=== PATIENT | female | born 1960 | race Two or more races ===

== ENCOUNTER → 2017-07-11 | Outpatient (CLI) | payer BC ==
--- NOTE | 2017-07-11 10:58 | WWHP ---
[facility] - HISTORY AND PHYSICAL DATE OF SERVICE: 07/11/2017 CHIEF COMPLAINT: The patient is here for her routine gynecologic exam. HPI: This is a 57-year-old G0 with an LMP of 2010. The patient is without gynecologic complaints. She denies any postmenopausal bleeding. Her last pelvic exam was approximately 3 years ago. She was previously a Dr. Dick patient. PAST MEDICAL HISTORY: Hypothyroidism, elevated cholesterol, and mitral valve prolapse. MEDICATIONS: 1. Levothyroxine 75 mcg daily. 2. Atenolol 5 mg daily. 3. Lipitor 10 mg daily. ALLERGIES: No known drug allergies. PAST SURGICAL HISTORY: D and C in 2010 and 1998, colonoscopy 2016 and this was her second one, breast reduction surgery in 1992. PAST FRAME ASSEMBLER HISTORY: She has been menopausal since 2010 and has no history of STDs. SOCIAL HISTORY: She denies tobacco and drug use and has 1 to 4 alcohol containing drinks per month. 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 FAMILY HISTORY: Mother of ovarian cancer at age 73. REVIEW OF SYSTEMS: Weight has been stable. She denies respiratory or cardiac problems. GI: She states she has occasional bloating, but is usually not persistent. PHYSICAL EXAM: Blood pressure 142/77, height 5 feet 3 inches, weight 175 pounds, BMI 31, temperature 96.2, pulse 62. This is a well-developed, well-nourished, white female, who is alert and oriented x3, in no acute distress. HEENT is within normal limits. NECK: Supple without mass or thyromegaly. CHEST AND LUNGS: Clear to auscultation. HEART: Regular rate and rhythm. Breasts are without mass or discharge. Axillary exam is negative for adenopathy. BACK: Negative for CVA tenderness. ABDOMEN: Soft, nontender, without palpable masses. PELVIC EXAM: External genitalia reveals [id number] atrophy without lesions. Cervix and vagina reveals [id number] atrophy without lesions. Cervix appears somewhat stenotic secondary to atrophy. There is no evidence of prolapse. The uterus is mid position, nongravid size and nontender. There are no palpable adnexal masses or tenderness. Rectovaginal exam is negative for mass or tenderness and is negative for occult blood. EXTREMITIES: Nontender. IMPRESSION: 1. A 57-year-old menopausal female with normal gynecologic exam. 2. Family history of ovarian cancer in her mother. PLAN: 1. Pap smear was performed. 2. Self-breast examination was discussed. 3. I have recommended screening mammogram and she states she has an appointment for this at [facility]. An order slip was given to the patient for this. 4. I have recommended that yearly pelvic ultrasounds because of her family history of ovarian cancer in her mother. An order slip was given to the patient for this. 5. We have discussed her mildly elevated blood pressure. I have recommended that she take her own blood pressure on a regular basis and follow up with Dr. Coon for blood pressure elevations. 6. Osteoporosis prevention was discussed. 7. She will return in 1 year. MMODL / IJN: [id number] /
== END | disposition home or self-care (01) ==
LOC: WWCWWP 09:00
PROVIDERS: ATTEND Obstetrics & Gynecology
DX: Z53.9 Procedure and treatment not carried out, unspecified reason (principal)